=== PATIENT | female | born 1965 | race Caucasian/White ===

== ENCOUNTER 2018-10-05 10:10 | Emergency (ER) | payer BC ==
[2018-10-05 10:15] VITALS: BP 147/90; PULSE 90; TEMP 98; BMI 41.3
--- NOTE | 2018-10-05 11:17 | PDOC ---
History of Present Illness - General Chief Complaint: Injury Stated Complaint: righ knee and foot pain s/p fall yestaerday Time Seen by Provider: 10/05/18 10:29 - History of Present Illness Initial Comments: 10/05/18 14:0 Chief complaint: Pain right foot History of present illness: Patient tripped fell yesterday, injuring her right knee and right foot. The knee feels fine and there is no pain, but she has moderate pain with weightbearing from the right . The pain is located on the dorsum of the midfoot. Review of systems:The fall appears to be mechanical, there was no loss of consciousness, lightheadedness.dizziness, chest pain, shortness breath, abdominal pain, nausea, vomiting, diarrhea, distal numbness, tingling, pain or weaknes. There was no head or neck injury or pain. Remainder of symptoms reviewed and negative. Past medical history;Elevated chol, high blood pressure, non-insulin- dependent diabetes Social/family history reviewed and noncontributory Physical exam. alert and vineet well-nouris no acute distress cheerful and cooperative. Afebrile, vital signs normal Head atraumatic. PERRLA fundi benign with sharp disc margins and good central venoos pulsations ENT clear Neck without tenderness or deformity Chest clear, full breath sounds bilaterally, no rib cage deformity or tenderness CV regular without murmur rub or gallop Abdomen soft nontender without mass or organomegaly Neurological: C2 to 12 intact. Strength full and symmetric. No focal sensory or motor deficits. Limping due to pain right foot Extremities: right foot without deformity, swelling, erythema, or heat. Mild point tender over the dorsum of the midfoot. Pulses full. No distal sensory or motor deficits Right knee: Superficial abrasions. No deformity swelling effusion, ligament stress tenderness or laxity. Lockman negative. X-ray foot: Probable minute avulsion fracture dorsum. Nondisplace Impression:Avulsion fracture dorsum of foot, superficial abrasions knee Plan: Mark Anthony wrap and crutches. Rest ice elevation and Advil. Abrasions cleaned and dressed with bacitracin. Orthopedic follow-up foot foot fracture Past History - Past Medical History Allergies/Adverse Reactions: Allergies Allergy/AdvReac Type Severity Reaction Status Date / Time No Known Allergies Allergy Verified 10/05/18 10:11 Home Medications: Ambulatory Orders Atorvastatin Ca [Lipitor] 20 mg PO DAILY 10/05/18 Losartan Potassium 0 mg PO DAILY 10/05/18 Metformin HCl [Glucophage] 500 mg PO BID 10/05/18 COPD: No Diabetes: Yes HTN: Yes Hypercholesterolemia: Yes - Suicide/Smoking/Psychosocial Hx Smoking History: Never smoked Hx Alcohol Use: No Drug/Substance Use Hx: No *Physical Exam - Vital Signs Last Vital Signs Temp Pulse Resp BP Pulse Ox 98 F 90 18 147/90 96 10/05/18 10:10 10/05/18 10:10 10/05/18 10:10 10/05/18 10:10 10/05/18 10:10 ED Treatment Course - RADIOLOGY Radiology Studies Ordered: Category Date Time Status FOOT-RIGHT [RAD] Stat Radiology 10/05/18 10:33 Taken *DC/Admit/Observation/Transfer Diagnosis at time of Disposition: Avulsion fracture - Discharge Dispostion Disposition: HOME Condition at time of disposition: Stable Decision to Admit order: No - Referrals Referrals: Andrew Brown MD [Staff Physician] - 1 week - Patient Instructions Printed Discharge Instructions: DI for Foot Fracture Additional Instructions: Rest ice elevate Motrin with the foot. Follow-up with orthopedist Dr. Brown for recheck 1 week Wound care as directed for the knee. See primary physician if sign of infection. - Post Discharge Activity
== END 2018-10-05 11:33 | disposition home or self-care (01) ==
LOC: FER 10:10
DX: S92.811A Other fracture of right foot, initial encounter for closed fracture (principal); W01.0XXA Fall on same level from slipping, tripping and stumbling without subsequent striking against object, initial encounter; Y93.89 Activity, other specified; Y92.89 Other specified places as the place of occurrence of the external cause; I10 Essential (primary) hypertension; E11.9 Type 2 diabetes mellitus without complications; E78.00 Pure hypercholesterolemia, unspecified
CPT/HCPCS: 73630-TC-RT-FY; 99282-25

== ENCOUNTER 2021-09-04 00:46 | Emergency (ER) | payer BC, OTHER ==
[2021-09-04 00:51] VITALS: BP 146/81; PULSE 87; TEMP 98.6; BMI 39.6
[2021-09-04] MEDS ORDERED: DIPHTH,PERTUSS(ACELL),TET 0.5 ML DISP.SYRIN IM ONE ×2 (01:02→01:49)
== END 2021-09-04 03:13 | disposition home or self-care (01) ==
LOC: FER 00:46
PROC: 3E0234Z Introduction of Serum, Toxoid and Vaccine into Muscle, Percutaneous Approach (ICD-10-PCS; principal; 2021-09-04)
DX: L03.115 Cellulitis of right lower limb (principal)
CPT/HCPCS: 73630-TC-RT-FY; 82962; 90715; 99284-25